=== PATIENT | female | born 1970 | race Caucasian/White ===

== ENCOUNTER 2025-02-03 12:48 | Emergency (ER) | payer SELFPAY ==
--- NOTE | ~2025-02-03 | XR_ITS ---
EXAMINATION: XR lumbar spine min 4V DATE: 02/03/2025 14:16 INDICATION: Low back pain. Fall. TECHNIQUE: 5 views of lumbar spine were obtained. COMPARISON: None. FINDINGS: There is 13 degrees levoscoliosis of thoracolumbar spine. Vertebral body heights are normal . There is moderately decreased disc height at L4-L5. There is multilevel facet joint osteoarthritis, severe in lower lumbar spine. IMPRESSION: 1. Moderate lumbar spondylosis. 2. Thoracolumbar levoscoliosis. Reviewed, dictated and finalized at location A. CULTURAL SYSTEMS SPECIALIST
--- NOTE | 2025-02-03 12:58 | ED_ITS ---
HPI - Back Pain/Injury General Chief Complaint: Back Pain/Injury Stated Complaint: back pain Time Seen by Provider: 02/03/25 12:58 Source: patient Mode of arrival: ambulatory Limitations: no limitations History of Present Illness HPI Narrative: Patient is a 55-year-old female presents with low back pain after fall 2 weeks ago. Patient does report some sciatic pain shooting from low back to right buttocks and hip. Patient has also had diarrhea since fall. Reports it is very small amounts up to 15 times a day. Reports it is dark in color but not black or tarry. Patient also reports urine feels hot but not burning with urination and does not have any urgency or frequency. Patient denies any loss of bowel or bladder. Denies any numbness, tingling or weakness down legs. Related Data Allergies Allergy/AdvReac Type Severity Reaction Status Date / Time levothyroxine Allergy Mild Rash Verified 02/03/25 13:17 Review of Systems Review of Systems: All systems reviewed & are unremarkable except as noted in HPI and below Constitutional: Constitutional: Denies body ache(s), Denies chills, Denies fatigue, Denies fever(s), Denies headache(s), Denies malaise and Denies weakness Eyes: Eyes: Denies blurry vision, Denies irritation and Denies loss of vision ENT: Denies otalgia, Denies headache(s), Denies nasal discharge, Denies sinus pain and Denies sore throat Cardiovascular: Cardiovascular: Denies chest pain, Denies irregular heart rhythm and Denies dyspnea Respiratory: Respiratory: Denies dyspnea Gastrointestinal: Gastrointestinal: Denies abdominal pain, Denies melena, Denies hematochezia, Reports diarrhea, Denies nausea and Denies vomiting Musculoskeletal: Musculoskeletal: Reports back pain, Denies myalgias and Denies arthralgias Integumentary/Breasts: Skin/Breast: Denies pruritus and Denies rash Neurologic: Denies headache(s), Denies loss of vision and Denies weakness Psychiatric: Psychiatric: Reports no additional psychiatric complaints Endocrine: Endocrine: Denies fatigue PMFSH Comments At time of signature, agree with nursing past medical, surgical, social and family history. There is no relevant family history pertinent to the presenting complaint. Exam Const: General: cooperative, healthy appearing, comfortable, no acute distress and well nourished Nutritional Appearance: well nourished Orientation/consciousness: patient oriented x3 Limitations: no limitations HENMT: Head: normal to inspection, normocephalic and atraumatic Ears: hearing grossly normal bilaterally and external ears normal Face/Nose/Sinus: Normal external nose present, normal facial exam and face symmetric Face and sinus: normal facial exam and face symmetric Mouth: Yes lip normal Eyes: General: appearance normal, both eyes and all related structures Alignment and Position: alignment normal and position normal Periorbital: periorbital findings normal Eyelids: eyelids normal Pupils: Equal, round and reactive pupils present EOM: EOMs intact bilaterally Neck: Neck: normal visual inspection, full ROM and supple Chest: Chest palpation & inspection: normal inspection of the chest Resp: Effort & Inspection: normal respiratory effort and able to speak in co mplete sentences Auscultation: clear to auscultation bilaterally Cardio: Rate: regular rate Rhythm: regular rhythm Heart sounds: S1 normal heart sound present and S2 normal heart sound present GI: Inspection: normal to inspection Back/Spine/Pelvis: Thoracic/Lumbar Spine: paraspinal muscle tenderness on the right in the lower lumbar and lumbar spinal tenderness at L4 and at L5 Skin: General skin exam: normal color and no rashes or lesions noted Neuro: General: patient oriented x3 and moves all extremities Cranial nerves: Yes Equal, round and reactive pupils present Speech: normal speech Gait exam (Neuro): Normal gait present Motor exam (neuro): 5/5 motor strength present throughout, Normal motor muscle tone present throughout and Motor abnormalities not present Sensory Exam: normal sensation Extrem: General: normal to inspection, full ROM and no edema Psych: Appearance: grossly normal and well kempt Mental Status: mental status grossly normal Speech and movement: Normal speech and movement present Affect: normal affect Attitude: cooperative Thought process: Normal thought process present Course Course Emergency Course: Patient is aware of diagnosis, understands and agrees to treatment plan. Anticipatory guidance given. Patient agrees to follow-up as directed and is aware of reasons to seek care at the emergency department. Portions of this record may have been created with voice recognition software Level of Care: Express Care Visit Vital Signs Vital signs: Vital Signs Temperature 36.5 C 02/03/25 13:09 Pulse Rate 98 02/03/25 13:09 Respiratory Rate 16 02/03/25 13:09 Blood Pressure 136/85 02/03/25 13:09 Pulse Oximetry 100 02/03/25 13:09 Oxygen Delivery Room Air 02/03/25 13:09 Temperature 36.5 C 02/03/25 13:09 Pulse Rate 98 02/03/25 13:09 Respiratory Rate 16 02/03/25 13:09 Blood Pressure 136/85 02/03/25 13:09 Pulse Oximetry 100 02/03/25 13:09 Oxygen Delivery Room Air 02/03/25 13:09 Reviewed MDM - Back Pain/Injury MDM Narrative Medical decision making narrative: Discussed being transferred to the emergency department for further workup and evaluation. Patient states she has no insurance and is concern for cost. Discussed options of x-rays and UA here in treatment with steroids and muscle relaxer. Discussed red flag symptoms including any loss of bowel or bladder, numbness, tingling or weakness in lower extremities or high fever requiring ER visit immediately. Patient states she has a PCP and will call on Thursday if sy mptoms are not improving for follow-up appointment and to get outpatient CT scan. Patient has equal strength and sensation in lower extremities. Pt well hydrated appearing, in no respiratory distress, hemodynamically stable. The patient is stable at time of discharge the clinical impression was discussed and the patient was given the opportunity to ask questions, which were addressed as completely as possible given the information available at present. Anticipatory guidance and return to care precautions were discussed and the importance of primary care follow-up was stressed and encouraged. The patient voiced understanding of the plan, indications to return, and the need for follow-up. Exam findings show no acute concerns or changes Patient is appropriate for outpatient treatment and follow-up. Differential Diagnosis Differential diagnosis: Likely lumbar radiculopathy, sciatica, strain of lumbar region and other (Lumbar fracture, less likely cauda equina) Medical Records Attestation: I reviewed the patient's medical records. Lab Data Attestation: I reviewed the patient's lab results. Labs: Lab Results 02/03/25 Range/Units 14:29 POC Urine Color Yellow POC Urine Clarity Clear POC Urine pH 6.5 POC Ur Specif Catherine 1.025 POC Urine Protein Negative (Negative) POC Ur Glucose (UA) Negative (Negative) POC Urine Ketones Negative (Negative) POC Urine Blood Negative (Negative) POC Urine Nitrite Negative (Negative) POC Urine Bilirubin Negative (Negative) POC Urine Urobilinogen 0.2 POC U Leukocyte Esteras Trace (Negative) Imaging Data Radiologist's impression: EXAMINATION: XR lumbar spine min 4V DATE: 02/03/2025 14:16 INDICATION: Low back pain. Fall. TECHNIQUE: 5 views of lumbar spine were obtained. COMPARISON: None. FINDINGS: There is 13 degrees levoscoliosis of thoracolumbar spine. Vertebral body heights are normal. There is moderately decreased disc height at L4-L5. There is multilevel facet joint osteoarthritis, severe in lower lumbar spine. IMPRESSION: 1. Moderate lumbar spondylosis. 2. Thoracolumbar levoscoliosis. Discharge Plan Discharge Clinical Impression: Lumbar spondylosis Patient Disposition: Home, Self-Care Condition: Stable Instructions: Arthritis (ED) Additional Instructions: Please follow up with your Primary Care Doctor within 48-72 hours - call for an appointment. Walking and other gentle exercising several times a week has been shown to improve back pain; bed rest is not recommended. Take steroids in the morning with food, take muscle relaxers every 8 hours as needed for muscle spasm. do not drive or make any important decisions while on this medication for it can make you drowsy. You may apply heat or cold to the area as needed. Contact your doctor or go to the emergency department if you develop problems with bladder or bowel function, weakness or loss of feeling in one or both of your legs, or any other serious concerns. Patient Language: Malay Prescriptions: New prednisone 20 mg tablet 40 mg PO DAILY 5 Days Qty: 10 0RF baclofen 10 mg tablet 10 mg PO TID 5 Days Qty: 15 0RF Follow-up/Referrals: North,Roxana Saavedra MD [Primary Care Provider] - 3 Days Stand Alone Forms: Work/School Release IP Time of Disposition: 14:29
[2025-02-03 13:09] VITALS: BP 136/85; PULSE 98; RESP 16; TEMP 36.5; O2SAT 100
--- OUTSIDE RECORDS SUMMARY | 2025-02-03 13:18 | XMS_ITS | Referral Summary ---
Author Organization [facility] Address [address] [place] [address] Care Team Providers Care Clinical Academic Allergist Name Role Phone Roxana Kat Primary Care Provider [phone] Source Comments [facility],non-owned Affiliates and Associated Physician Practices is amultiple site organization consisting of ambulatory clinics and hospital sitesin [place], [place], [place] and [place]. This disclosure is being madepursuant to the Care Everywhere program and may not contain all information available regarding this patient. Last updated 18.[facility] [employer] Allergies No known active allergies Medications * Be aware that medications may not be up to date on this document. Alwaysverify current medications with the patient. Medication Sig Dispensed Refills Start Date End Date Status DULoxetine (CYMBALTA) 30 MG capsule Take 30 mg by mouth DAILY. 01/08/2017 Active clonazePAM, disintegrating, 0.5 MGIndications:Notalgia paresthetica Active levothyroxine (SYNTHROID) 100 MCG tabletIndications:Nota lgia paresthetica Take 100 mcg by mouth Active MELOXICAM POIndications:Notalgia paresthetica Active gabapentin (NEURONTIN) 300 MG capsuleIndications:Not algia paresthetica Take one tab PO TID. 30 day supply 90 capsule 09/27/2018 Active VENTOLIN HFA 108 (90 Base) MCG/ACT inhaler Inhale 2 puffs by mouth every 4 hours as needed 09/03/2020 Active SYMBICORT 160-4.5 MCG/ACT inhaler 06/10/2021 Active montelukast (SINGULAIR) 10 MG tablet Take 1 tablet by mouth once daily 08/13/2021 Active Active Problems Problem Noted Date Diagnosed Date Rash and other nonspecific skin eruption 017 Social History Tobacco Use Types Packs/Day Years Used Date Smoking Tobacco: Former Cigarettes Q uit: 11/30/2011 Smokeless Tobacco: Never Alcohol Use Standard Drinks/Week Comments Yes 0 (1 standard drink = 0.6 oz pur e alcohol) Sex and Gender Information Value Date Recorded Sex Assigned at Not on file Gender Identity Not on file Sexual Orientation Not on file Last Filed Vital Signs Vital Sign Reading Time Taken Comments Blood Pressure 139/91 01/08/2016 11:45 AM [employer] Pulse 75 01/08/2016 11:45 AM [employer] Temperature 36.4 C (97.6 F) 01/08/2016 11:45 AM [employer] Respiratory Rate 16 01/08/2016 11:45 AM [employer] Oxygen Saturation - - Inhaled Oxygen Concentration - - Weight 71.7 kg (158 lb) 07/30/2021 2:48 PM CDT Height 167.6 cm (5' 6 ) 01/08/2016 11:45 AM [employer] Body Mass Index 25.5 01/08/2016 11:45 AM [employer] Plan of Treatment Not on file Goals Goal Patient Goal Type Associated Problems Recent Progress Patient-Stated? Author Mobility General No Shira Bond, RN Note: Expected end date: 11/29/2021 The goal is to maintain or improve your mobility at the optimum level for you. Interventions: Care Teams Clinical Academic Allergist Relationship Specialty Start Date End Date Roxana Kat DO [address] [place] [address] PCP - General 09/14/14
--- OUTSIDE RECORDS SUMMARY | 2025-02-03 13:18 | XMS_ITS | Patient Health Summary ---
Author Organization [facility] Address [address] [place] [address] Care Team Providers Care National Service Officer Name Role Phone Roxana Kat Kortney JIMENEZ Primary Care Provider [phone] Note from [facility],non-owned Affiliates and Associated Physician Practices is amultiple site organization consisting of ambulatory clinics and hospital sitesin [place], [place], [place] and [place]. This disclosure is being madepursuant to the Care Everywhere program and may not contain all information available regarding this patient. Last updated 18.[facility] Allergies No known active allergies Medications * Be aware that medications may not be up to date on this document. Alwaysverify current medications with the patient. * DULoxetine (CYMBALTA) 30 MG capsule(Started 01/08/2017) Take 30 mg by mouth DAILY. * clonazePAM, disintegrating, 0.5 MG * levothyroxine (SYNTHROID) 100 MCG tablet Take 100 mcg by mouth * MELOXICAM PO * gabapentin (NEURONTIN) 300 MG capsule(Started 09/27/2018) Take one tab PO TID. 30 day supply * VENTOLIN HFA 108 (90 Base) MCG/ACT inhaler(Started 09/03/2020) Inhale 2 puffs by mouth every 4 hours as needed * SYMBICORT 160-4.5 MCG/ACT inhaler(Started 06/10/2021) * montelukast (SINGULAIR) 10 MG tablet(Started 08/13/2021) Take 1 tablet by mouth once daily Active Problems Problem Noted Date Diagnosed Date [...] Comments Blood Pressure 139/91 01/08/2016 11:45 AM PIN TICKET MACHINE OPERATOR Pulse 75 01/08/2016 11:45 AM PIN TICKET MACHINE OPERATOR Temperature 36.4 C (97.6 F) 01/08/2016 11:45 AM PIN TICKET MACHINE OPERATOR Respiratory Rate 16 01/08/2016 11:45 AM PIN TICKET MACHINE OPERATOR Oxygen Saturation - - Inhaled Oxygen Concentration - - Weight 71.7 kg (158 lb) 07/30/2021 2:48 PM CDT Height 167.6 cm (5' 6 ) 01/08/2016 11:45 AM PIN TICKET MACHINE OPERATOR Body Mass Index 25.5 01/08/2016 11:45 AM PIN TICKET MACHINE OPERATOR Procedures * PROC INJECTION JOINT (SMALL/INTERMED/MAJOR)(Performed 08/01/2021) Performed for Osteoarthritis of carpometacarpal (CMC) joint of right thumb, unspecified osteoarthritis type * XR HAND LEFT 3VW OR MORE(Performed 07/30/2021) Performed for Pain in both hands * XR HAND RIGHT 3VW OR MORE(Performed 07/30/2021) Performed for Pain in both hands * CULTURE AEROBIC(Performed 01/09/2017) * DERMATOPATHOLOGY(Performed 01/08/2017) * PATHOLOGY/GENETICS HISTORICAL-ONBASE(Performed 01/08/2016) * PATHOLOGY/GENETICS HISTORICAL-ONBASE(Performed 01/08/2016) * LAB MISC TEST(Performed 10/30/2015) * KEHINDE URINE(Performed 10/30/2015) * IMMUNOFIXATION BLOOD(Performed 10/30/2015) * METHYLMALONIC ACID BLOOD(Performed 10/30/2015) * COPPER BLOOD(Performed 10/30/2015) * NEUTROPHIL CYTOPLASMIC ANTIBODY(Performed 10/30/2015) * ANSARI (SM) ANTIBODY VERONICA(Performed 10/30/2015) * EILEEN W/REFLEX IFA PATTERN(Performed 10/30/2015) * HEMOGLOBIN A1C(Performed 10/30/2015) * VITAMIN B12(Performed 10/30/2015) * TSH(Performed 10/30/2015) * T4 FREE(Performed 10/30/2015) * COMPREHENSIVE METABOLIC PANEL(Performed 10/30/2015) Results * PROC INJECTION JOINT (SMALL/INTERMED/MAJOR) (08/01/2021 2:42 PM CDT) Narrative Sia Cole PA - 08/01/2021 2:42 PM CDT Sia Cole PA 08/01/2021 2:44 PM Orthopaedic Hand Surgery Procedure Note Diagnosis: right thumb CMC joint OA Procedure: Injection of corticoid steroid into the right thumb CMC joint Indications: Vaishali Cisneros is a 51 year old female who has right thumb pain in the setting of CMC joint OA. Procedure Details: The patient was informed of their condition, and the potential benefits of injection of steroid. The patient was counseled as to the risks of the procedure including the risk of skin discoloration and elevated sugar levels. The patient was agreeable and elected to proceed. The patient's right hand was placed onto an appropriately draped procedure table and the area was prepped with beta-dine. Next, ethyl chloride spray was applied to numb the skin and using a 25 Ga needle, a solution of 0.5mL of 1% lidocaine and 0.5mL of kenalog 40mg/mL was placed into the Right thumb CMC joint. The needle was removed and the needle site dressed with a semi-sterile bandage. The patient tolerated the procedure well. Sia LEWIS PROCEDURE/MINOR SURG ICAL ORDERABLES * XR HAND LEFT 3VW OR MORE (07/30/2021 2:38 PM CDT) Anatomical Region Laterality Modality Wrist / Hand Radiographic Danya ging 07/30/2021 2:54 PM CDT Impressions 07/30/2021 3:16 PM CDT IMPRESSION: Mild to moderate osteoarthritis bilaterally, greatest at the first carpometacarpal joints. Dictated by Osmani Alston MD (family medicine resident). I, Dr. ABDULLAHI FOOTE MD have personally reviewed and interpreted this examination/study. This report was electronically signed by ABDULLAHI FOOTE MD on 07/30/2021 3:16 PM . Narrative 07/30/2021 3:16 PM CDT EXAMINATION: XR HAND RIGHT 3VW , XR HAND LEFT 3VW HISTORY: M79.641: Pain in both hands M79.642: Pain in both hands COMPARISON: No prior study is available for comparison. FINDINGS: Right hand: No fracture or dislocation. Moderate osteoarthritis at the first carpometacarpal joint and mild involvement of several interphalangeal joints. No erosions. Left hand: Nonstandard positioning including on the PA view. No fracture or dislocation. Moderate osteoarthritis at the first carpometacarpal joint. No erosions seen. No soft tissue swelling is present. Procedure Note Abdullahi Foote MD - 07/30/2021 EXAMINATION: XR HAND RIGHT 3VW , XR HAND LEFT 3VW HISTORY: M79.641: Pain in both hands M79.642: Pain in both hands COMPARISON: No prior study is available for comparison. FINDINGS: Right hand: No fracture or dislocation. Moderate osteoarthritis at the first carpometacarpal joint and mild involvement of several interphalangeal joints. No erosions. Left hand: Nonstandard positioning including on the PA view. No fracture or dislocation. Moderate osteoarthritis at the first carpometacarpal joint. No erosions seen. No soft tissue swelling is present. IMPRESSION: Mild to moderate osteoarthritis bilaterally, greatest at the first carpometacarpal joints. Dictated by Osmani Alston MD (family medicine resident). Dr. ABDULLAHI Rocha MD have personally reviewed and interpreted this examination/study. This report was electronically signed by ABDULLAHI FOOTE MD on07/30/2021 3:16 PM . Sia LEWIS DIAGNOSTIC IMAGING O RDERABLES * XR HAND RIGHT 3VW OR MORE (07/30/2021 2:38 PM CDT) Anatomical Region Laterality Modality Wrist / Hand Radiographic Danya ging 07/30/2021 2:54 PM CDT Impressions 07/30/2021 3:16 PM CDT IMPRESSION: Mild to moderate osteoarthritis bilaterally, greatest at the first carpometacarpal joints. Dictated by Osmani Alston MD (family medicine resident). Dr. ABDULLAHI Rocha MD have personally reviewed and interpreted this examination/study. This report was electronically signed by ABDULLAHI FOOTE MD on 07/30/2021 3:16 PM . Narrative 07/30/2021 3:16 PM CDT EXAMINATION: XR HAND RIGHT 3VW , XR HAND LEFT 3VW HISTORY: M79.641: Pain in both hands M79.642: Pain in both hands COMPARISON: No prior study is available for comparison. FINDINGS: Right hand: No fracture or dislocation. Moderate osteoarthritis at the first carpometacarpal joint and mild involvement of several interphalangeal joints. No erosions. Left hand: Nonstandard positioning including on the PA view. No fracture or dislocation. Moderate osteoarthritis at the first carpometacarpal joint. No erosions seen. No soft tissue swelling is present. Procedure Note Abdullahi Foote MD - 07/30/2021 EXAMINATION: XR HAND RIGHT 3VW , XR HAND LEFT 3VW HISTORY: M79.641: Pain in both hands M79.642: Pain in both hands COMPARISON: No prior study is available for comparison. FINDINGS: Right hand: No fracture or dislocation. Moderate osteoarthritis at the first carpometacarpal joint and mild involvement of several interphalangeal joints. No erosions. Left hand: Nonstandard positioning including on the PA view. No fracture or dislocation. Moderate osteoarthritis at the first carpometacarpal joint. No erosions seen. No soft tissue swelling is present. IMPRESSION: Mild to moderate osteoarthritis bilaterally, greatest at the first carpometacarpal joints. Dictated by Osmani Alston MD (family medicine resident). IDr. ABDULLAHI MD have personally reviewed and interpreted this examination/study. This report was electronically signed by ABDULLAHI FOOTE MD on07/30/2021 3:16 PM . Sia [facility] DIAGNOSTIC IMAGING O RDERABLES * CULTURE AEROBIC (01/09/2017 4:35 PM PIN TICKET MACHINE OPERATOR) Culture Aerobic No Growth at 48 hours [facility] Gram Stain [facility] Comment:1 swab Skin (tissue) specimen (specimen) 01/09/2017 4:35 PM PIN TICKET MACHINE OPERATOR 01/09/2017 4:35 PM PIN TICKET MACHINE OPERATOR Narrative [facility] - 01/11/2017 9:56 AM PIN TICKET MACHINE OPERATOR Specimen Type->Skin Gram Stains are routinely screened for the presence of Polymorphonuclear Cells. Herman Self MD LAB - MICROBIOLOGY O RDERATHOR [facility] [address] [place] [address], [facility] [phone] * PATHOLOGY TISSUE FOR DERMATOLOGY (01/08/2017 12:00 AM PIN TICKET MACHINE OPERATOR) Result CASE: [id number] PATIENT: VAISHALI CISNEROS PATHOLOGIC DIAGNOSIS: Right posterior shoulder: SUPERFICIAL AND DEEP PERIVASCULAR LYMPHOCYTIC INFILTRATE WITH EOSINOPHILS (see microscopic description and comment) CLINICAL DATA: Papular urticaria vs bites vs folliculitis vs PLC vs PLEVA vs ACD vs other. GROSS DESCRIPTION: Received is one formalin filled container labeled with the patients name and designated right posterior shoulder. The specimen consists of a punch biopsy measuring [id number]. The specimen is bisected and submitted in 1 cassette. Jar 0. MICROSCOPIC DESCRIPTION: There is a superficial and deep, wedge-shaped, perivascular and interstitial infiltrate of lymphocytes with eosinophils. A few neutrophils are also seen. Additional deeper sections were obtained and reviewed. [place] methenamine silver (GMS) stain fails to highlight fungal elements in the available sections. COMMENT: These histological findings are consistent with an arthropod bite reaction or papular urticaria. Clinical correlation is recommended. Electronically signed out by Lorin Walker M.D., PhD. 01/12/2017 4:03:36PM [facility] Comment: Performed at: Dermatopathology Laboratory [facility] - Department of Dermatology [address] [place] [address], 5th [place] [address] Phone number: [phone] FAX: [phone] Skin (tissue) specimen (specimen) 01/08/2017 01/09/[address] [facility] - 01/12/2017 4:04 PM PIN TICKET MACHINE OPERATOR Specimen A: Type->Punch Site->right posterior shoulder History->46 yo CF w/ hx of progressive pruritic eruption. Baker papules, mostly excoriated on right post shoulder, right arm, neck. Impression->papular urticaria vs. bites vs. folliculitis vs. PLC vs. PLEVA vs. ACD vs. other Check Margins:->N/A Prior Biopsy->N/A Herman Self MD LAB - PATHOLOGY/CYTO LOGY ORDERABLES Performing Organization Address [facility] Co de Phone Number [facility] [address] 5th Floor Lab [address] [phone] * PATHOLOGY/GENETICS HISTORICAL-ONBASE (01/08/2016) Only the most recent of2 resultswithin the time period is included. 01/08/2016 Narrative [facility] - 03/04/2016 12:52 PM CDT Historical Provider LAB - CHEMISTRY O RDERABLES Performing Organization Address 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 Co de Phone Number [facility] RE[facility] NON INTERF * EILEEN W/REFLEX IFA PATTERN (10/30/2015 2:28 PM PIN TICKET MACHINE OPERATOR) EILEEN None Detected None Detected [facility] Blood specimen (specimen) BLOOD SPECIMEN / Unknown 10/30/2015 2:28 PM PIN TICKET MACHINE OPERATOR 10/30/2015 3:14 PM PIN TICKET MACHINE OPERATOR Yesenia Peraza MD LAB - SEROLOGY ORDER AGUSTINA Performing Organization Address [facility] Co de Phone Number [facility] [address] [phone] * IMMUNOFIXATION (10/30/2015 2:28 PM PIN TICKET MACHINE OPERATOR) Pathologist [facility] Immunofixation Serum See Comment Normal Pattern [facility] Comment: Serum immunofixation electrophoresis shows polyclonal IgG, IgA, and IgM immunoglobulins. Serum immunofixation electrophoresis identifies a possible IgG kappa monoclonal immunoglobulin. Serum immunofixation studies are inconclusive with repeat analysis of specimen received on 10/30/15. Recommend repeat testing on fresh specimen with addition of serum protein electrophoresis and serum free light chain analysis. MD America Heredia, PhD Blood specimen (specimen) BLOOD SPECIMEN / Unknown 10/30/2015 2:28 PM PIN TICKET MACHINE OPERATOR 10/30/2015 3:13 PM PIN TICKET MACHINE OPERATOR Yesenia Peraza MD LAB - CHEMISTRY ANGELA PRECIADO Performing Organization Address [facility]/ZIP Co de Phone Number [address] [phone] * ANSARI (SM) ANTIBODY VERONICA (10/30/2015 2:28 PM PIN TICKET MACHINE OPERATOR) Pathologist [facility] Ansari Antibody 5.1 0.0 - 19.9 Units [facility] Comment: VERONICA Antibody Numeric Result Interpretation: <20.0 Units: Negative 20.0 - 39.0 Units: Weakly Positive >39.0 Units: Positive Blood specimen (specimen) BLOOD SPECIMEN / Unknown 10/30/2015 2:28 PM PIN TICKET MACHINE OPERATOR 10/30/2015 3:14 PM PIN TICKET MACHINE OPERATOR Yesenia Peraza MD LAB - CHEMISTRY ORDNegar PRECIADO Performing Organization Address City/[facility]/ZIP Co de Phone Number [address] [phone] * METHYLMALONIC ACID BLOOD (10/30/2015 2:28 PM PIN TICKET MACHINE OPERATOR) Pathologist [facility] Methylmalonic Acid 97 0 - 378 nmol/L [facility] (BEAKER) Blood specimen (specimen) BLOOD SPECIMEN / Unknown 10/30/2015 2:28 PM PIN TICKET MACHINE OPERATOR 10/30/2015 3:14 PM PIN TICKET MACHINE OPERATOR Narrative [facility] ([place]) - 11/02/2015 3:26 PM PIN TICKET MACHINE OPERATOR Performed at: [address] [id number] Director Day Care Center: Antwon Arcos MD, Phone: [phone] Yesenia Peraza MD LAB - CHEMISTRY ORDE RABLES [facility] * KEHINDE URINE (10/30/2015 2:28 PM PIN TICKET MACHINE OPERATOR) Immunofixation Urine Normal Pattern Normal Pattern [facility] Comment: Urine immunofixation electrophoresis shows polyclonal IgG, IgA, kappa, and lambda immunoglobulins. No monoclonal immunoglobulins detected. Non-secretory myeloma (NSM) cannot be excluded on the basis of this result. Measurements of serum free kappa and lambda immunoglobulin light chains can identify up to 70% of patients with NSM. Vale Morales MD *The electrophoresis pattern and the interpretation have been reviewed and verified by the teaching physician. Urine specimen (specimen) URINE SPECIMEN OBTAINED BY CLEAN CATCH PROCEDURE / Unknown 10/30/2015 2:28 PM PIN TICKET MACHINE OPERATOR 10/30/2015 3:13 PM PIN TICKET MACHINE OPERATOR Yesenia Peraza MD LAB - URINE CHEMISTR Y ORDERABLES [address] [phone] * HEMOGLOBIN A1C (10/30/2015 2:28 PM PIN TICKET MACHINE OPERATOR) Hemoglobin A1c 5.2 4.4 - 6.3 % [facility] Estimated Average Glucose 103 mg/dL [facility] Comment: HbA1c Interpretation: Treatment target values recommended by ADA and other clinical organizations should be used to evaluate metabolic control in patients. Treatment Target Values: Normal : < 5.7% Pre-diabetes: 5.7-6.4% Diabetes: Equal to or greater than 6.5% Reference: [place] Diabetes Association Standards of Care in Diabetes -2014 In patients 70 years and older consider HbA1c target range of 7.0-7.5% Reference: Diabetes Mellitus in Older People: Position Statement on behalf of the International Association of Gerontology and Geriatrics (IAGG), the Diabetes Working Alliance Party for Older People (EDWPOP), and the International Task Force of Experts in Diabetes. Ender Munoz et al. J [employer] Association. 2012 Test results diagnostic of diabetes should be repeated for confirmation. The Tosoh G8 assay for the measurement of HbA1c is a National Glycohemoglobin Standardization Program (NGSP)certified method. Results for patients with HbE disease should be interpreted with caution as this hemoglobinopathy has been shown to interfere with the Tosoh G8 assay. Blood specimen (specimen) BLOOD SPECIMEN / Unknown 10/30/2015 2:28 PM PIN TICKET MACHINE OPERATOR 10/30/2015 3:14 PM PIN TICKET MACHINE OPERATOR Yesenia Peraza MD LAB - CHEMISTRY ANGELA PRECIADO Performing Organization Address City/State/[facility] Co de Phone Number [address] [phone] * NEUTROPHIL CYTOPLASMIC ANTIBODY (10/30/2015 2:28 PM PIN TICKET MACHINE OPERATOR) Cytoplasmic (C-ANCA) <1:20 Neg:<1:20 titer [facility] (BEAKER) p-ANCA <1:20 Neg:<1:20 titer [facility] (BEAKER) Comment: The presence of positive fluorescence exhibiting P-ANCA or C-ANCA patterns alone is not specific for the diagnosis of Julia's Granulomatosis (WG) or microscopic polyangiitis. Decisions about treatment should not be based solely on ANCA IFA results. The International ANCA Group Consensus recommends follow up testing of positive sera with both CA-3 and MPO-ANCA enzyme immunoassays. As many as 5% serum samples are positive only by EIA. Ref. AM J Clin Pathol 1999;111:507-513. Atypical p-ANCA <1:20 Neg:<1:20 titer [facility] (BEAKER) Comment: The atypical pANCA pattern has been observed in a significant percentage of patients with ulcerative colitis, primary sclerosing cholangitis and autoimmune hepatitis. Blood specimen (specimen) BLOOD SPECIMEN / Unknown 10/30/2015 2:28 PM PIN TICKET MACHINE OPERATOR 10/30/2015 3:14 PM PIN TICKET MACHINE OPERATOR Narrative [facility] ([place]) - 11/01/2015 5:15 PM PIN TICKET MACHINE OPERATOR Performed at: [address] [id number] Director Day Care Center: Abhilash Lundberg PhD, Phone: [phone] Yesenia Peraza MD LAB - CHEMISTRY ANGELA PRECIADO Performing Organization Address City/[facility]/ZIP Co de Phone Number [facility] * COPPER BLOOD (10/30/2015 2:28 PM PIN TICKET MACHINE OPERATOR) Copper 90 72 - 166 ug/dL [facility] Comment:Detection Limit = 5 Blood specimen (specimen) BLOOD SPECIMEN / Unknown 10/30/2015 2:28 PM PIN TICKET MACHINE OPERATOR 10/30/2015 3:14 PM PIN TICKET MACHINE OPERATOR Narrative [facility] ([place]) - 11/02/2015 6:15 AM PIN TICKET MACHINE OPERATOR Performed at: [address] [id number] Director Day Care Center: Antwon Arcos MD, Phone: [phone] Yesenia Peraza MD LAB - CHEMISTRY ANGELA PRECIADO Performing Organization Address City/[facility]/ZIP Co de Phone Number [facility] * (ABNORMAL) COMPREHENSIVE METABOLIC PANEL (10/30/2015 2:28 PM PIN TICKET MACHINE OPERATOR) BUN 12 7 - 26 mg/dL [facility] Creatinine 1.0 0.6 - 1.2 mg/dL [facility] Sodium 140 136 - 145 mmol/L [facility] Potassium 3.6 3.5 - 4.5 mmol/L [facility] Chloride 106 98 - 107 mmol/L [facility] CO2 23 22 - 29 mmol/L [facility] Glucose 111 70 - 115 mg/dL [facility] Calcium 9.2 8.4 - 10.2 mg/dL [facility] Protein Total 6.5 6.0 - 8.3 g/dL [facility] Albumin 3.6 3.4 - 5.0 g/dL [facility] Bilirubin Total 0.5 0.2 - 1.2 mg/dL [facility] Alkaline Phosphatase 60 40 - 150 Units/L [facility] ALT 12 0 - 55 Units/L [facility] AST 17 5 - 34 Units/L [facility] Anion Gap 15 8 - 18 [facility] BUN/Creatinine Ratio 12 7 - 23 [facility] Osmolality Calculated 276 270 - 300 mOsm/kg [facility] Albumin/Globulin Ratio 1.2 1.1 - 2.3 [facility] eGFR 60(L) >60 mL/min/1.7 3 m2 [facility] Blood specimen (specimen) BLOOD SPECIMEN / Unknown 10/30/2015 2:28 PM PIN TICKET MACHINE OPERATOR 10/30/2015 3:14 PM PIN TICKET MACHINE OPERATOR Yesenia Peraza MD LAB - CHEMISTRY ANGELA PRECIADO [address] [phone] * VITAMIN B12 (10/30/2015 2:28 PM PIN TICKET MACHINE OPERATOR) Vitamin B12 601 213 - 816 pg/mL [facility] Blood specimen (specimen) BLOOD SPECIMEN / Unknown 10/30/2015 2:28 PM PIN TICKET MACHINE OPERATOR 10/30/2015 3:14 PM PIN TICKET MACHINE OPERATOR Yesenia Peraza MD LAB - CHEMISTRY ANGELA PRECIADO Performing Organization Address City/[facility]/ZIP Co de Phone Number [address] [phone] * TSH (10/30/2015 2:28 PM PIN TICKET MACHINE OPERATOR) TSH 3.887 0.350 - 4.940 uIU/mL [facility] Blood specimen (specimen) BLOOD SPECIMEN / Unknown 10/30/2015 2:28 PM PIN TICKET MACHINE OPERATOR 10/30/2015 3:14 PM PIN TICKET MACHINE OPERATOR Yesenia Peraza MD LAB - CHEMISTRY ANGELA PRECIADO [address] [phone] * T4 FREE (10/30/2015 2:28 PM PIN TICKET MACHINE OPERATOR) T4 Free 1.0 0.7 - 1.5 ng/dL [facility] Blood specimen (specimen) BLOOD SPECIMEN / Unknown 10/30/2015 2:28 PM PIN TICKET MACHINE OPERATOR 10/30/2015 3:14 PM PIN TICKET MACHINE OPERATOR Yesenia Peraza MD LAB - CHEMISTRY ANGELA PRECIADO [facility] Organization Address City/State/ZIP Co [place] [address], [facility] [phone] Care Teams National Service Officer Relationship Specialty Start Date End Date Roxana Kat DO [address] [place] [address] PCP - General 09/14/14
--- OUTSIDE RECORDS SUMMARY | 2025-02-03 13:18 | XMS_ITS | Clinical Summary ---
Author Organization [facility] Address [address] [place] [address] Care Team Providers Care Resident Surgeon Name Role Phone Roxana Kat Primary Care Provider [phone] Source Comments [facility],non-owned Affiliates and Associated Physician Practices is amultiple site organization consisting of ambulatory clinics and hospital sitesin [place], [place], [place] and [place]. This disclosure is being madepursuant to the Care Everywhere program and may not contain all information available regarding this patient. Last updated 18.[facility] Allergies No known active allergies Medications * [...] Rash and other nonspecific skin eruption 017 Family History Medical History Relation Name Comments None Known Brother Status: Alive None Known Father Status: Alive Cancer Maternal Grandmother CVA Mother Heart Disease Mother Status: Alive Hypertension Mother None Known Paternal Aunt None Known Paternal Grandfather None Known Paternal Grandmother None Known Paternal Uncle Allergy (Severe) Neg Hx Cancer - Skin, Melanoma Neg Hx Cancer - Skin, Non Melanoma Neg Hx Eczema Neg Hx Hemophilia Neg Hx Psoriasis Neg Hx Rashes/Skin Problems Neg Hx Relation Name Status Comments Brother Father Maternal Grandmother Mother Paternal Aunt Paternal Grandfather Paternal Grandmother Paternal Uncle Social History Tobacco Use Types Packs/Day Years [...] Comments Blood Pressure 139/91 01/08/2016 11:45 AM GRINDER DRESSER Pulse 75 01/08/2016 11:45 AM GRINDER DRESSER Temperature 36.4 C (97.6 F) 01/08/2016 11:45 AM GRINDER DRESSER Respiratory Rate 16 01/08/2016 11:45 AM GRINDER DRESSER Oxygen Saturation - - Inhaled Oxygen Concentration - - Weight 71.7 kg (158 lb) 07/30/2021 2:48 PM CDT Height 167.6 cm (5' 6 ) 01/08/2016 11:45 AM GRINDER DRESSER Body Mass Index 25.5 01/08/2016 11:45 AM GRINDER DRESSER Plan of Treatment Health Maintenance Due Date Last Done Comments COLOGUARD (AGES 45-75) - COL ON CA SCREENING 1971 COLON MONITORING 1971 COLONOSCOPY - COLON CA SCREENING 1971 CT COLONOGRAPHY - COLON CA SCREENING 1971 Colorectal Cancer Screening 1971 FIT - COLON CA SCREENING 1971 FLEX SIG - COLON CA SCREENING 1971 LIPID TESTING 1971 MAMMOGRAM 1971 PAP SMEAR 1971 HIV SCREENING 1986 HEPATITIS C SCREENING 01/20/1989 DTAP/TDAP/TD VACCINES (1 - Tdap) 1990 HEPATITIS B VACCINE (1 of 3 - 19+ 3-dose series) 1990 PNEUMOCOCCAL VACCINE 50+ (1 of 1 - PCV) 2021 ZOSTER VACCINE (1 of 2) 2021 COVID-19 VACCINE (1 - 2023-2 5 season) 2024 INFLUENZA VACCINE (#1) 2024 DEPRESSION SCREENING 11/30/2024 HIB VACCINE Aged Out No longer eligi ble based on patient's age to complete this topic HPV VACCINE Aged Out No longer eligi ble based on patient's age to complete this topic MENINGOCOCCAL (Group B) VACCINE Aged Out No longer eligible based on patient's age to complete this topic MENINGOCOCCAL VACCINE Aged Out No juanjo eli eligible based on patient's age to complete this topic PNEUMOCOCCAL VACCINE Aged Out No long er eligible based on patient's age to complete this topic Goals Goal Patient Goal Type Associated Problems Recent Progress Patient-Stated? Author Mobility General No Shira Bond, RN Note: Expected end date: 11/29/2021 The goal is to maintain or improve your mobility at the optimum level for you. Interventions: Care Teams Resident Surgeon Relationship Specialty Start Date End Date Roxana Kat DO [address] [place] [address] [facility] - General 09/14/14
--- OUTSIDE RECORDS SUMMARY | 2025-02-03 13:21 | XMS_ITS | Encounter Summary ---
Author Organization [facility] Address [facility] [place] [address] Care Team Providers Care Concrete Conveyor Operator Name Role Phone Roxana Kat DO Primary Care Provider [phone] Encounter Details Date Type Department Care Team (Late st Contact Info) Description 09/23/2022 Prep for Procedure [facility] [address] [place], [place] [id number] Nitin Trinidad MD [address] [id number] Social History Tobacco Use Types Packs/Day Years Used Date Smoking Tobacco: Former Cigarettes 2009 Electronic Cigarettes Smokeless Tobacco: Never Alcohol Use Standard Drinks/Week Comments Yes 0 (1 standard drink = 0.6 oz pur e alcohol) rare PHQ-2 Answer Date Recorded PHQ-2 Score - If the patient scores above 3, please move on to questions 3-9 6 07/21/2022 Comments No Sex and Gender Information Value Date Recorded Sex Assigned at Not on file Legal Sex Female 8:30 PM CDT Gender Identity Not on file Sexual Orientation Not on file documented as of this encounter Plan of Treatment Not on file documented as of this encounter Visit Diagnoses Diagnosis History of colon polyps- Primary Personal history of colonic polyps documented in this encounter Additional Health Concerns Infection Onset Date Last Indicated Resolved Time COVID-19 Rule Out 10/06/2022 10/06/2022 10/06/2022 8:09 AM 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
--- OUTSIDE RECORDS SUMMARY | 2025-02-03 13:21 | XMS_ITS | Encounter Summary ---
Author Organization [facility] Address [facility] [place] [address] Care Team Providers Care Surgical Elastic Knitter Name Role Phone Roxana Kat DO Primary Care Provider [phone] Roxana Kat Kortney DO Primary Care Provider [phone] HenMarissa jonesll Kortney DO Primary Care Provider HenMarissa jonesll Kortney DO Primary Care Provider [phone] HenRoxana jones Kortney DO Primary Care Provider HenMarissa jonesll Kortney DO Primary Care Provider [phone] HenMarissa jonesll Kortney DO Primary Care Provider [phone] HenMarissa jonesll Kortney DO Primary Care Provider [phone] HenMarissa jonesll Kortney DO Primary Care Provider HenMarissa jonesll Kortney DO Primary Care Provider HenMarissa jonesll Kortney DO Primary Care Provider [phone] HenMarissa jonesll Kortney DO Primary Care Provider HenMarissa jonesll Kortney DO Primary Care Provider Encounter Details Date Type Department Care Team (Late st Contact Info) Description 10/13/2002 Abstract [facility] Nicola Schmidt, Saturnino Petersen MD Social History Tobacco Use Types Packs/Day Years Used Date Smoking Tobacco: Never Assessed Comments Unknown Sex and Gender Information Value Date Recorded Sex Assigned at Not on file Legal Sex Female 8:30 PM CDT Gender Identity Not on file Sexual Orientation Not on file documented as of this encounter Plan of Treatment Not on file documented as of this encounter Visit Diagnoses Not on filedocumented in this encounter Additional Health Concerns Infection Onset Date Last Indicated Resolved Time COVID-19 Rule Out 10/06/2022 10/06/2022 10/06/2022 8:09 AM BOX LIDDER COVID-19 Rule Out 10/10/2022 10/10/2022 10/10/2022 1:50 PM BOX LIDDER documented as of this encounter Care Teams Surgical Elastic Knitter Relationship Specialty Start Date End Date Roxana Kat DO [address] [place], [place] [address] PCP - General 03/24/17 Roxana Kat DO [address] [place], [place] [address] PCP - General 12/10/16 03/23/17 Roxana Kat DO [address] [place], [place] [address] PCP - General 11/10/16 12/09/16 Roxana Kat DO [address] [place], [place] [address] PCP - General 07/17/16 11/09/16 Roxana Kat DO [address] [place], [place] [address] PCP - General 04/02/16 07/16/16 Roxana Kat DO [address] [place], [place] [address] PCP - General 02/20/16 04/01/16 Roxana Kat DO [address] [place] [address] PCP - General 07/23/15 02/19/16 Roxana Kat DO [address] [place], [place] [address] PCP - General 09/12/14 07/22/15 Roxana Kat DO [address] [place], [place] [address] PCP - General 07/26/13 09/11/14 Roxana Kat DO [address] [place], [place] [address] PCP - General 07/21/13 07/25/13 Roxana Kat DO [address] [place], [place] [address] PCP - General 04/05/13 07/20/13 Roxana Kat DO [address] [place], [place] [address] PCP - General 12/15/12 04/04/13 Roxana Kat DO [address] [place], [place] [address] PCP - General 03/10/11 12/14/12 documented as of this encounter
--- OUTSIDE RECORDS SUMMARY | 2025-02-03 13:21 | XMS_ITS | Clinical Summary ---
Author Organization [facility] Address [address] [place] [address] Care Team Providers Care School Traffic Supervisor Name Role Phone Zander Kat DO Primary Care Provider [phone] Allergies No known active allergies Medications TRIAMCINOLONE 0.1 % creamIndications:R deann and nonspecific skin eruption APPLY TOPICALLY 3 (THREE) TIMES DAILY. 80 g 0 Active polyethylene glycol-electrolyte s (NULYTELY) 420 g solution 2 Active budesonide-formote rol (SYMBICORT) 160-4.5 MCG/ACT inhalerIndications :Severe persistent asthma, unspecified whether complicated ([facility] HHS/HCC) INHALE 2 PUFFS INTO THE LUNGS 2 TIMES DAILY. 10.2 g 6 3 Active montelukast (SINGULAIR) 10 MG tabletIndications: Severe persistent asthma, unspecified whether complicated (CMS/HCC HHS/HCC) Take 1 tablet (10 mg total) by mouth daily. 30 tablet 4 Active losartan (COZAAR) 25 MG tabletIndications: Primary hypertension Take 1 tablet (25 mg total) by mouth daily. 30 tablet 11 4 Active DULoxetine (CYMBALTA) 60 MG capsuleIndications :Anxiety Take 1 capsule (60 mg total) by mouth 2 (two) times daily. 60 capsule 11 4 Active levothyroxine (SYNTHROID) 150 MCG tabletIndications: Acquired hypothyroidism Take 1 tablet (150 mcg total) by mouth every morning. 30 tablet 11 4 Active gabapentin (NEURONTIN) 300 MG capsuleIndications :Neuropathy TAKE 1 CAPSULE BY MOUTH THREE TIMES DAILY 270 capsule 3 4 Active Albuterol-Budesoni de (AIRSUPRA) 90-80 MCG/ACT AerosolIndications :Bronchospasm Inhale 2 puffs into the lungs every 4 (four) hours as needed. 32.1 g 1 4 Active levothyroxine (SYNTHROID) 137 MCG tabletIndications: Acquired hypothyroidism Take 1 tab (137mcg) Mon/Thu/Fri, continue 150mcg on Thu/Thu/Sat/S un 30 tablet 1 4 Active Active Problems Problem Noted Date Diagnosed Date Primary osteoarthritis of left knee 07/21/2023 Melena 07/22/2022 Overview (07/22/2022): Added automatically from request for surgery [id number] BRBPR (bright red blood per rectum) 07/22/2022 Overview (07/22/2022): Added automatically from request for surgery [id number] Adjustment reaction 09/07/2018 Asthma (HHS/HCC) 07/22/2018 Bronchospasm 07/16/2018 Cervical radicular pain 04/05/2018 Chondromalacia, knee 03/22/2018 Benign paroxysmal positional vertigo 03/24/2017 Neuropathy 02/20/2016 Vitamin D deficiency 07/27/2015 Insomnia 07/17/2015 Hypothyroidism 01/03/2013 Anxiety 10/05/2012 Immunizations Name Administration Dates Next Due Tdap (Adacel) 01/15/2021 Family History Medical History Relation Comments Arthritis Father Diabetes Father Hypertension Father Other Maternal Uncle 1 bladder cancer Maternal Uncle 2 Arthritis Mother CHF Mother Cancer Mother Depression Mother Hypertension Mother Stroke Mother Kidney Cancer Paternal Aunt bladder cancer Paternal Uncle Relation Status Comments Father Maternal Uncle 1 Alive Maternal Uncle 2 Alive Mother Paternal Aunt Paternal Uncle Social History Tobacco Use Types Packs/Day Years Used Date Smoking Tobacco: Former Cigarettes 1 23 1 7 - 2009 Passive Smoke Exposure: Past Smokeless Tobacco: Never Tobacco Cessation:Counseling Given: No Comments:Former, Quit 2009 Alcohol Use Standard Drinks/Week Comments Yes 2 (1 standard drink = 0.6 oz pur e alcohol) rare PHQ-2 Answer Date Recorded Patient Health Questionnaire-2 Score 0 07/21/2024 Comments No Sex and Gender Information Value Date Recorded Sex Assigned at Not on file Legal Sex Female 8:30 PM CDT Gender Identity Not on file Sexual Orientation Not on file Last Filed Vital Signs Vital Sign Reading Time Taken Comments Blood Pressure 108/68 07/21/2024 2:00 PM CDT Pulse 78 07/21/2024 2:00 PM CDT Temperature 36.6 C (97.8 F) 07/21/2024 2:00 PM CDT Respiratory Rate 18 07/21/2024 2:00 PM CDT Oxygen Saturation 97% 07/21/2024 2:00 PM CDT Inhaled Oxygen Concentration - - Weight 68.6 kg (151 lb 3.2 oz) 07/21/2024 2:00 P M CDT Height 167.6 cm (5' 6 ) 09/29/2023 2:44 PM CDT Body Mass Index 24.4 09/29/2023 2:44 PM CDT Plan of Treatment Health Maintenance Due Date Last Done Comments Pneumococcal Vaccine: Pediatrics (0 to 5 Years) and At-Risk Patients (6 to 64 Years) (1 of 2 - PCV) 1977 Hepatitis B Vaccines (1 of 3 - 19+ 3-dose series) 1990 Zoster Vaccines (1 of 2) 2021 Annual Physical 06/30/2023 06/30/2022, 07/01/2021 COVID-19 Vaccine ( - 2023-2 5 season) 2024 Mammogram Screening 08/01/2024 08/01/2022 Influenza Adult (#1) 2024 PHQ-2 (Physician Algaaciq) 11/30/2024 07/21/2024 PHQ-2 (Physician Algaaciq) 07/21/2025 07/21/2024 DTaP, Tdap and Td Vaccines ( 2 - Td or Tdap) 01/15/2031 01/15/2021 Colorectal Cancer Screening Colonoscopy (10 Years) 10/06/2032 10/06/2022, 10/06/2022 Hepatitis C Completed 07/04/2022 Meningococcal B Vaccine Aged Out No l onger eligible based on patient's age to complete this topic Meningococcal Vaccine Aged Out No juanjo eli eligible based on patient's age to complete this topic RSV Immunizations Under 20 Months Aged Out No longer eligible b ased on patient's age to complete this topic Procedures Procedure Name Priority Date/Time Associated Diagnosis Comments COLONOSCOPY Routine 10/06/2022 7:25 AM LIVESTOCK INSPECTOR MG SCREENING W ELIE ADRI DIGI Routine 08/01/2022 2:44 PM CDT Encounter for screening mammogram for breast cancer HEPATITIS C ANTIBODY Routine 07/04/2022 7:25 AM CDT Annual physical exam from Last 3 Months or Most Recently Relevant to Health Maintenance Results * MG SCREENING W ELIE ADRI DIGI (08/01/2022 2:44 PM CDT) Anatomical Region Laterality Modality Breast Bilateral Mammography 08/01/2022 3:59 PM CDT Impressions 08/01/2022 4:01 PM CDT IMPRESSION: No significant interval change. No mammographic evidence of malignancy. RECOMMENDATION: Routine ScreeningBilateral OVERALL IMAGING ASSESSMENT: ACR BI-RADS 2 - BENIGN FINDING(S). Ordered By: ZANDER KAT Interpreted By: Erick Ferrari, 08/01/2022 3:59 PM Narrative 08/01/2022 4:01 PM CDT EXAMINATION: MG SCREENING W ELIE ADRI DIGI INDICATIONS: Screening TECHNIQUE: Digital full field CC and MLO screening mammography bilaterally to include 3-D Tomosynthesis technique. This study was read with the assistance of a computer-aided detection system. HISTORY: No reported personal or first degree family history of breast cancer. No reported prior breast procedure or current breast complaint. COMPARISON: None. Baseline examination. TISSUE DENSITY: There are scattered areas of fibroglandular density. FINDINGS: Few typically benign round and punctate calcifications. No suspicious microcalcification or mass. No developing asymmetry or architectural distortion. No axillary adenopathy. Zander Kat DO MAMMO Final Result * HEPATITIS C ANTIBODY (07/04/2022 7:25 AM CDT) HEPATITIS C AB NON-REACTI VE NON-REACT PAM 07/04/2022 6:40 PM CDT [facility] Comment: ANTIBODIES TO HCV NOT DETECTED. DOES NOT EXCLUDE THE POSSIBILITY OF EXPOSURE TO HCV. 07/04/2022 7:25 AM CDT Zander Kat DO LABORATORY Final Result [facility] [address] [place] [address], [id number] from Last 3 Months or Most Recently Relevant to Health Maintenance Care Teams School Traffic Supervisor Relationship Specialty Start Date End Date Zander Kat DO [address] [place] [address] PCP - General 03/24/17
--- OUTSIDE RECORDS SUMMARY | 2025-02-03 13:21 | XMS_ITS | Encounter Summary ---
Author Organization [facility] Address [facility] [place] [address] Care Team Providers Care Subcontract Administrator Name Role Phone Roxana Kat DO Primary Care Provider [phone] Encounter Details Date Type Department Care Team (Late st Contact Info) Description 05/07/[address] [facility] CONVERSION [address] [place] [address] , Generic Conversion, Social History Tobacco Use Types Packs/Day Years Used Date Smoking Tobacco: Every Day Electronic Cigarettes Smokeless Tobacco: Never Alcohol Use Standard Drinks/Week Comments Yes 0 (1 standard drink = 0.6 oz pur e alcohol) rare Comments Unknown Sex and Gender Information Value [...] Rule Out 10/06/2022 10/06/2022 10/06/2022 8:09 AM ENGINE TURNER COVID-19 Rule Out 10/10/2022 10/10/2022 10/10/2022 1:50 PM ENGINE TURNER documented as of this encounter Care Teams Subcontract Administrator Relationship Specialty Start Date End Date Roxana Kat DO [address] [place] [address] PCP - General 03/24/17 documented as of this encounter
[2025-02-03 14:31] LABS: EDUAAPPEAR Clear; EDUABILI Negative (Negative); EDUABLOOD Negative (Negative); EDUACOLOR1 Yellow; EDUAGLUCOSE Negative (Negative); EDUAKETONE Negative (Negative); EDUALEUKO Trace (Negative); EDUANITRATE Negative (Negative); EDUAPH 6.5; EDUAPROTEIN Negative (Negative); EDUASPGRAVITY 1.025; EDUAUROBILI 0.2
== END 2025-02-03 14:38 | disposition home or self-care (01) ==
PROVIDERS: Emergency Provider Nurse Practitioner Family; PCP Family Medicine
DX: M47.816 Spondylosis without myelopathy or radiculopathy, lumbar region (principal)
CPT/HCPCS: 72110; 81003; 87086; 99213; G0463